=== PATIENT | female | born 1960 | race Two or more races ===

== ENCOUNTER 2021-11-20 22:27 | Emergency (ER) | payer BC ==
[~2021-11-20] VITALS: Ht 160 cm; Wt 69.4 kg
[2021-11-20 22:42] VITALS: BP_SYST 178
[2021-11-21 01:20] LABS: CALCIUM 8.4 mg/dL (8.4-11.0); CREATININE 0.79 mg/dL (0.55-1.30); POTASSIUM 3.5 mmol/L (3.5-5.1)
[2021-11-21 01:25] LABS: ALBUMIN 3.4 g/dL (3.4-4.8); TOTAL BILIRUBIN 0.7 mg/dL (0.0-1.0)
[2021-11-21 01:48] LABS: BILIRUBIN,URINE NEGATIVE (NEGATIVE); BLOOD, URINE 1+ (NEGATIVE); CLARITY/URINE CLEAR (CLEAR); COLOR,URINE YELLOW (YELLOW); GLUCOSE,URINE NEGATIVE (NEGATIVE); KETONES,URINE NEGATIVE (NEGATIVE); LEUKOCYTE ESTERASE ,URINE 2+ (NEGATIVE); NITRITE, URINE NEGATIVE (NEGATIVE); PH,URINE 5.5 (5.0-8.0); PROTEIN URINE NEGATIVE (NEGATIVE); UROBILINOGEN,URINE 0.2 (0.2-1.0)
[2021-11-21 02:22] LABS: BASOPHILS % (AUTO) 0.3 % (0.0-2.0); EOSINOPHILS % (AUTO) 0.7 % (0.0-4.0); HEMATOCRIT 39.7 % (36-48); HEMOGLOBIN 12.9 g/dL (12.0-16.0); LYMPHOCYTES # (AUTO) 0.8 K/uL (1.0-5.5); LYMPHOCYTES % (AUTO) 12.5 % (20.5-51.5); MEAN CORPUSCULAR HEMOGLOBIN 25 pg (27-31); MEAN CORPUSCULAR HGB CONC 33 % (32-36); MEAN CORPUSCULAR VOLUME 76 fL (79.0-98.0); MONOCYTES # (AUTO) 0.7 K/uL (0.0-1.0); MONOCYTES % (AUTO) 10.2 % (1.7-9.3); NEUTROPHILS # (AUTO) 4.9 K/uL (1.8-7.7); NEUTROPHILS % (AUTO) 76.3 % (40.0-70.0); PLATELET COUNT (AUTO) 71 K/uL (130-430); RED BLOOD CELL COUNT(AUTO) 5.25 MIL/uL (4.2-6.2); RED CELL DISTRIBUTION WIDTH 19.3 % (9.0-15.0); WHITE BLOOD COUNT (AUTO) 6.4 K/uL (4.8-10.8)
[2021-11-21 02:43] LABS: BACTERIA,URINE MANY /HPF (None Seen); WBC,URINE 80-100 /HPF (0-3)
[2021-11-21 02:44] LABS: YEAST,URINE None Seen /HPF (None Seen)
[2021-11-21] MEDS ORDERED: cefTRIAXone 1 GM in D5W 50 ML IV ONE (03:00)
[2021-11-21] MEDS ORDERED: cefTRIAXone 1 GM VIAL ONE (03:09)
[2021-11-21] MEDS ORDERED: ACET12.55 PO (03:46)
[2021-11-21] MEDS ORDERED: CEPH250C PO (03:46)
[2021-11-21] MEDS ORDERED: FLUC100T41 PO (03:55)
[2021-11-21] MEDS ORDERED: FLUCONAZOLE 100 MG TABLET (DIFLUCAN) PO ONE (04:00)
[2021-11-21 06:14] VITALS: BP_SYST 143
== END 2021-11-21 03:50 | disposition home or self-care (01) ==
LOC: SED 22:27
DX: N93.8 Other specified abnormal uterine and vaginal bleeding (principal); N39.0 Urinary tract infection, site not specified; F03.90 Unspecified dementia, unspecified severity, without behavioral disturbance, psychotic disturbance, mood disturbance, and anxiety
CPT/HCPCS: 36415; 76830; 76857; 80053; 81000; 85025; 87086; 96365; 99284; J0696

== ENCOUNTER 2022-12-28 14:21 | Emergency (ER) | payer BC ==
[~2022-12-28] VITALS: Ht 162.6 cm; Wt 74.8 kg
[~2022-12-28 14:21] MED LIST: ACET12.55 PO; CEPH250C PO; FLUC100T41 PO
[2022-12-28 14:25] VITALS: BP_SYST 184
[2022-12-28] MEDS ORDERED: NS 500 ML IV ONE (15:00)
[2022-12-28] MEDS ORDERED: GUAI180L4 PO (15:05)
[2022-12-28] MEDS ORDERED: ALBU90AE2 INH (15:05)
[2022-12-28] MEDS ORDERED: LACT10SO6 PO (15:05)
[2022-12-28] MEDS ORDERED: FLUT1AER INH (15:05)
[2022-12-28] MEDS ORDERED: ACET1TAB93 PO (15:05)
[2022-12-28] MEDS ORDERED: MIRT-92 PO (15:05)
[2022-12-28] MEDS ORDERED: DIVA125T32 PO (15:05)
[2022-12-28] MEDS ORDERED: FOLI-43 PO (15:05)
[2022-12-28 16:04] LABS: BILIRUBIN,URINE NEGATIVE (NEGATIVE); BLOOD, URINE NEGATIVE (NEGATIVE); COLOR,URINE YELLOW (YELLOW); GLUCOSE,URINE NEGATIVE (NEGATIVE); KETONES,URINE TRACE (NEGATIVE); LEUKOCYTE ESTERASE ,URINE NEGATIVE (NEGATIVE); NITRITE, URINE POSITIVE (NEGATIVE); PH,URINE 6.5 (5.0-8.0); PROTEIN URINE NEGATIVE (NEGATIVE)
[2022-12-28 16:06] LABS: ALBUMIN 3.6 g/dL (3.4-4.8); CALCIUM 9.2 mg/dL (8.4-11.0); CREATININE 0.94 mg/dL (0.55-1.30); TOTAL BILIRUBIN 0.8 mg/dL (0.0-1.0)
[2022-12-28 16:17] LABS: BASOPHILS % (AUTO) 0.5 % (0.0-2.0); EOSINOPHILS % (AUTO) 0.4 % (0.0-4.0); HEMATOCRIT 36.7 % (36-48); HEMOGLOBIN 12.1 g/dL (12.0-16.0); LYMPHOCYTES # (AUTO) 0.3 K/uL (1.0-5.5); LYMPHOCYTES % (AUTO) 10.2 % (20.5-51.5); MEAN CORPUSCULAR HEMOGLOBIN 25 pg (27-31); MEAN CORPUSCULAR HGB CONC 33 % (32-36); MEAN CORPUSCULAR VOLUME 77 fL (79.0-98.0); MONOCYTES # (AUTO) 0.4 K/uL (0.0-1.0); MONOCYTES % (AUTO) 10.8 % (1.7-9.3); NEUTROPHILS # (AUTO) 2.5 K/uL (1.8-7.7); NEUTROPHILS % (AUTO) 78.1 % (40.0-70.0); RED BLOOD CELL COUNT(AUTO) 4.77 MIL/uL (4.2-6.2); RED CELL DISTRIBUTION WIDTH 17.6 % (9.0-15.0); WHITE BLOOD COUNT (AUTO) 3.3 K/uL (4.8-10.8)
[2022-12-28 16:43] LABS: CLARITY/URINE HAZY (CLEAR)
[2022-12-28 16:51] LABS: PLATELET COUNT (AUTO) 60 K/uL (130-430)
[2022-12-28 16:56] LABS: BACTERIA,URINE MANY /HPF (None Seen); MUCUS,URINE None Seen /LPF (None Seen); RBC,URINE NONE SEEN /HPF (0-3); WBC,URINE 0-3 /HPF (0-3)
[2022-12-28] MEDS ORDERED: CEPH-548 PO ×2 (17:15→18:08)
[2022-12-28] MEDS ORDERED: cephALEXin 500 MG CAPSULE PO ONE (17:15)
[2022-12-28] MEDS ORDERED: LOPE2CAP PO ×2 (17:16→18:08)
[2022-12-28 18:35] VITALS: BP_SYST 132
== END 2022-12-28 18:35 ==
LOC: SED 14:21
DX: N39.0 Urinary tract infection, site not specified (principal); A08.4 Viral intestinal infection, unspecified; R19.7 Diarrhea, unspecified; D69.6 Thrombocytopenia, unspecified; I10 Essential (primary) hypertension; Z79.899 Other long term (current) drug therapy
CPT/HCPCS: 99283; 96360; 80053; 81000; 83690; 85025; 87086; 36415; J7030

== ENCOUNTER 2023-08-07 18:31 | Emergency (ER) | payer BC ==
[~2023-08-07] VITALS: Ht 152.4 cm; Wt 55.3 kg
[~2023-08-07 18:31] MED LIST changes: +ACET1TAB93 PO; +ALBU90AE2 INH; +CEPH-548 PO; +DIVA125T32 PO; +FLUT1AER INH; +FOLI-43 PO; +GUAI180L4 PO; +LACT10SO6 PO; +LOPE2CAP PO; +MIRT-92 PO
[2023-08-07 18:35] VITALS: BP_SYST 135; PULSE 77; RESP 18; TEMP 97.8; O2SAT 99
[2023-08-07] MEDS ORDERED: LORazepam 1 MG TABLET PO ONE (18:45)
[2023-08-07 18:55] LABS: BASOPHILS % (AUTO) 0.4 % (0.0-2.0); EOSINOPHILS % (AUTO) 0.1 % (0.0-4.0); HEMATOCRIT 36.7 % (36-48); HEMOGLOBIN 11.6 g/dL (12.0-16.0); LYMPHOCYTES # (AUTO) 0.6 K/uL (1.0-5.5); LYMPHOCYTES % (AUTO) 10.4 % (20.5-51.5); MEAN CORPUSCULAR HEMOGLOBIN 23 pg (27-31); MEAN CORPUSCULAR HGB CONC 32 % (32-36); MEAN CORPUSCULAR VOLUME 73 fL (79.0-98.0); MONOCYTES # (AUTO) 0.5 K/uL (0.0-1.0); MONOCYTES % (AUTO) 8.9 % (1.7-9.3); NEUTROPHILS # (AUTO) 4.7 K/uL (1.8-7.7); NEUTROPHILS % (AUTO) 80.2 % (40.0-70.0); PLATELET COUNT (AUTO) 85 K/uL (130-430); RED BLOOD CELL COUNT(AUTO) 5.01 MIL/uL (4.2-6.2); RED CELL DISTRIBUTION WIDTH 21.5 % (9.0-15.0); WHITE BLOOD COUNT (AUTO) 5.8 K/uL (4.8-10.8)
[2023-08-07] MEDS ORDERED: MAGN400T10 PO (19:10)
[2023-08-07] MEDS ORDERED: POTA-197 PO (19:10)
[2023-08-07 19:16] LABS: ALBUMIN 3.6 g/dL (3.4-4.8); CALCIUM 9.4 mg/dL (8.4-11.0); CREATININE 1.3 mg/dL (0.55-1.30); POTASSIUM 3.5 mmol/L (3.5-5.1); TOTAL BILIRUBIN 0.5 mg/dL (0.0-1.0); TOTAL PROTEIN, SERUM 7.8 g/dL (6.4-8.3)
[2023-08-07 22:01] VITALS: BP_SYST 131; PULSE 100; RESP 16; TEMP 98.3; O2SAT 99
== END 2023-08-07 22:03 | disposition home or self-care (01) ==
LOC: SED 18:31
DX: R07.0 Pain in throat (principal); R53.1 Weakness; R06.02 Shortness of breath; E11.9 Type 2 diabetes mellitus without complications; I10 Essential (primary) hypertension; Z79.899 Other long term (current) drug therapy
CPT/HCPCS: 36415; 80053; 82140; 85025; 99283